=== PATIENT | female | born 2000 | race Hispanic/Latino ===

== ENCOUNTER 2020-12-18 15:42 | Outpatient (CLI) | payer BC, SELFPAY ==
--- NOTE | ~2020-12-18 | US_ITS ---
EXAMINATION: US OB follow up DATE: 12/18/2020 16:27 INDICATION: Routine care during third trimester . TECHNIQUE: Real-time ultrasound of the pelvis was performed. The interpreting radiologist was not pre sent for the study. COMPARISON: None. FINDINGS: There is a single living fetus in vertex presentation. The placenta is fundal. heart rate is 1 30 beats per minute (bpm). The amniotic fluid index is 9.6 cm, which is normal (5th%-95%: 9.6-7.3 cm at 23.9 weeks estimated gestational age). The following biometric data were obtained: BPD: 8.8 cm -> 35 weeks 2 days Head circumference: 31.3 cm -> 35 weeks 0 days Abdominal circumference: 32.2 cm -> 36 weeks 1 days Femur length: 6.5 cm -> 33 weeks 4 days These measurements are concordant. Head circumference to abdominal circumference ratio: 0.97 (normal range 0.93-1.11). Estimated weight: 2640 g (+/-) 396 g or 5 lbs. 13 oz. (+/-) 14 oz. IMPRESSION: 1. Single living fetus in vertex presentation with heart rate of 130 bpm. 2. Normal amniotic fluid index of 9.6 cm. 3. Estimated weight is 8th percentile by Hadlock criteria when 01/02/2021 is used as the estimat ed date of delivery (TERRI). Please correlate with clinical information or earlier ultrasounds for most accurate TERRI. Reviewed, dictated and finalized at location A. IMPRESSION: 1. Single living fetus in vertex presentation with heart rate of 130 bpm. 2. Normal amniotic fluid index of 9.6 cm. 3. Estimated weight is 8th percentile by Hadlock criteria when 01/02/2021 is used as the estimated date of delivery (TERRI). Please correlate with clinical information or earlier ultrasounds for most accurate TERRI.
== END 2020-12-18 15:43 | disposition home or self-care (01) ==
LOC: ANHIMG 15:50
PROVIDERS: Visit Provider Physician Assistant
DX: Z34.91 Encounter for supervision of normal pregnancy, unspecified, first trimester (principal); Z3A.01 Less than 8 weeks gestation of pregnancy
CPT/HCPCS: 76816

== ENCOUNTER 2020-12-25 11:30 | Outpatient (RCR) | payer BC, SELFPAY ==
--- NOTE | ~2020-12-25 | US_ITS ---
EXAMINATION: US OB follow up w BPP EXAM DATE: 12/25/2020 13:11 INDICATION: IUGR/BPP, NORBERT, EFW, growth, position. 3rd trimester. TECHNIQUE: Pelvic obstetrical transabdominal sonogram was performed by a technologist. There are mu ltiple grayscale and Doppler images available for interpretation. Comparison is made to prior examina tion from 12/18/2020. FINDINGS: There is a single fetus identified in vertex presentation with a heart rate of 126 beats pe r minute. The placenta is located in the anterior position. There is no sonographic evidence of retr oplacental hemorrhage identified. The amniotic fluid index is 11.7 centimeters, which is normal. BIOPHYSICAL PROFILE (performed by the technologist) breathing (30 sec sustained breathing in 30 minutes): 2 out of 2 movement (3 gross body movements in 30 minutes): 2 out of 2 tone (one episode of vesjjaa-mzddnncxa-skhxfnn limb movement): 2 out of 2 Amniotic fluid pocket (2 cm): 2 out of 2 Total score: 8 out of 8 BIOMETRIC DATA: Biparietal diameter (BPD): 8.5 cm --------------> 34 weeks 1 day. Head circumference (HC): 32.4 cm ---------------> 36 weeks 5 days. Abdominal circumference (AC): 32.9 cm ---------> 36 weeks 5 days. Femur length (FL): 6.9 cm ------------------------> 35 weeks 4 days. These measurements are concordant. HC/AC ratio is 0.99 (The 5th -- 95th percentile range is 0.93-1.08. Estimated weight is 2864 g +/- 430 g. This is the 10.5 percentile when the currently reported clinical gestation age 38 weeks 6 days, clinical estimated date of delivery (TRERI-OPE) 01/02/21 is used . estimated gestational age based on measurements from this exam is 35 weeks 6 days, with an es timated date of delivery (TERRI-AUA) 01/23. IMPRESSION: 1. Single fetus with heart rate of 126 bpm. 2. Normal biophysical profile score of 8 out of 8. 3. Compared to last week interval increase in estimated weight from 8th percentile to 10.5th p ercentile. 4. Normal NORBERT 11.7 cm. Reviewed, dictated and finalized at location A. 3. Normal NORBERT 11.7 cm. IMPRESSION: 1. Single fetus with heart rate of 126 bpm. 2. Normal biophysical profile score of 8 out of 8. 3. Compared to last week interval increase in estimated weight from 8th percentile to 10.5th percentile. 4. Normal NORBERT 11.7 cm.
[2020-12-25 13:30] VITALS: BP 118/71; PULSE 85
== END 2021-03-25 23:59 | disposition home or self-care (01) ==
LOC: ANHOBOP 11:30
PROVIDERS: Visit Provider Obstetrics & Gynecology
DX: O36.5930 Maternal care for other known or suspected poor fetal growth, third trimester, not applicable or unspecified (principal); Z3A.37 37 weeks gestation of pregnancy
CPT/HCPCS: 59025; 76816; 76819

== ENCOUNTER 2021-01-03 12:32 | Inpatient (IN) | payer BC, SELFPAY ==
--- NOTE | 2021-01-02 23:13 | PM.IMHP ---
H&P: HPI History of Present Illness Date/Time: 01/02/21 23:13 20yo with GBS, MTHFR, BV, anemia, late care, and growth restriction estimated weight 10th percentile presents for induction of labor at 39w5d with favorable cervix for induction has just recently finished metronidazole for BV care began 09/04/2020 and she has had a total 8 visits. Her is monitored with noninvasive test NIPT normal negative anomaly screen ultrasound negative anomaly screen with serial scans revealing growth restriction. GBS positive 1 hour glucose normal MTHFR positive on treatment program. For with favorable cervix in near her EDC she is being brought in for labor induction with Pitocin. I explained her condition procedure and risk involved she understands risk of shoulder dystocia and hemorrhage as well as risk of section and the surgical risks including bleeding infection injury to bladder bowel baby pelvic vessels DVT pneumonia wound infection endometritis UTI the risk of anesthesia she understands all this accepts and agrees to proceed She desires natural childbirth she will be having a girl she desires [facility] and she will use Nexplanon for control Chief Complaint: term , growth restriction, elective induction of labor Review of Systems Review of Systems: All systems reviewed & are unremarkable except as noted in HPI and below Constitutional: Constitutional: Reports no additional constitutional complaints Eyes: Eyes: Reports no additional eye complaints ENT: Reports system reviewed and no additional complaints, except as documented Cardiovascular: Cardiovascular: Reports no additional cardiovascular complaints Respiratory: Respiratory: Reports no additional respiratory complaints Gastrointestinal: Gastrointestinal: Reports no additional gastrointestinal complaints Genitourinary: Genitourinary: Reports no additional female genitourinary complaints Musculoskeletal: Musculoskeletal: Reports no additional musculoskeletal complaints Integumentary/Breasts: Skin/Breast: Reports system reviewed and no additional complaints, except as docu Neurologic: Reports system reviewed and no additional complaints, except as documented Psychiatric: Psychiatric: Reports no additional psychiatric complaints Endocrine: Endocrine: Reports no additional endocrine complaints Hematologic/Lymphatic: Hematologic/Lymphatic: Reports no additional hematologic/lymphatic complaints Allergic/Immunologic: Allergic/Immunologic: Reports no additional allergic/immunologic complaints [facility] Past Medical History Medical History Anemia affecting Bacterial vaginosis growth restriction GBS (group B Streptococcus carrier), +RV culture, currently Heterozygous MTHFR mutation C677T Term Family History Family History (Updated 01/02/21 @ 23:26 by Mert Nguyễn MD) Grandparent Diabetes mellitus Social History Social History (Updated 01/02/21 @ 23:27 by Mert Nguyễn MD) Alcohol intake: never Substance use: never Living arrangements: with family Occupation/Education: unemployed Sexual Orientation (if Verbalized by the Patient): Straight or Heterosexual Spiritual care concerns: No Agree to blood products: Yes Exam Const: General: cooperative, healthy appearing, comfortable, no acute distress, well developed, alert, awake and Physically active Nutritional Appearance: average body habitus Orientation/consciousness: patient oriented x3 Limitations: no limitations HENMT: Head: normal to inspection Eyes: General: appearance normal, both eyes and all related structures Neck: Neck: normal visual inspection and full ROM Chest: Chest palpation & inspection: normal inspection of the chest Resp: Effort & Inspection: normal res
--- NOTE | 2021-01-02 23:22 | WPDOBADMIT ---
Obstetrics - Admit Note Admission Note: record reviewed. No pertinent additions to the history and/or any subsequent changes in the physical findings that are not consistent with the expected course of the were found. Additions to the history and/or subsequent changes in the physical findings follow. None. 20yo with GBS, MTHFR, BV, anemia, late care, and growth restriction estimated weight 10th percentile presents for induction of labor at 39w5d with favorable cervix for induction has just recently finished metronidazole for BV care began 09/04/2020 and she has had a total 8 visits. Her is monitored with noninvasive test NIPT normal negative anomaly screen ultrasound negative anomaly screen with serial scans revealing growth restriction. GBS positive 1 hour glucose normal MTHFR positive on treatment program. For with favorable cervix in near her EDC she is being brought in for labor induction with Pitocin. I explained her condition procedure and risk involved she understands risk of shoulder dystocia and hemorrhage as well as risk of section and the surgical risks including bleeding infection injury to bladder bowel baby pelvic vessels DVT pneumonia wound infection endometritis UTI the risk of anesthesia she understands all this accepts and agrees to proceed She desires natural childbirth she will be having a girl she desires [facility] and she will use Nexplanon for control
[2021-01-03] VITALS (114 sets, daily range): BP systolic 97–143; BP diastolic 55–104; PULSE 52–133; TEMP 36.3–36.9; O2SAT 94–100; BMI 29.7
--- NOTE | 2021-01-03 03:26 | P.HPUP_ITS ---
History and Physical Update Update Date/Time: 01/02/21 23:22 History and Physical has been reviewed, including an updated exam of the patient. There are NO changes in the patient's condition. Risks, benefits, and alternatives have been discussed and questions answered. Patient agrees to proceed with procedure. 20yo with GBS, MTHFR, BV, anemia, late care, and growth restriction estimated weight 10th percentile presents for induction of labor at 39w5d with favorable cervix for induction has just recently finished metronidazole for BV care began 09/04/2020 and she has had a total 8 visits. Her is monitored with noninvasive test NIPT normal negative anomaly screen ultrasound negative anomaly screen with serial scans revealing growth restriction. GBS positive 1 hour glucose normal MTHFR positive on treatment program. For with favorable cervix in near her EDC she is being brought in for labor induction with Pitocin. I explained her condition procedure and risk involved she understands risk of shoulder dystocia and hemorrhage as well as risk of section and the surgical risks including bleeding infection injury to bladder bowel baby pelvic vessels DVT pneumonia wound infection endometritis UTI the risk of anesthesia she understands all this accepts and agrees to proceed She desires natural childbirth she will be having a girl she desires [facility] and she will use Nexplanon for control
--- NOTE | 2021-01-03 13:14 | PC.NURSE ---
This patient, Sofia Hussein, was admitted to Labor/Delivery/Recovery 106 on 01/03/21 at 12:32. Plans for labor, pain management and were discussed with patient. Patient/family oriented to hospital policies and general routines including ID bracelet, bed and alarms, visiting hours, pain management, procedures, bathroom and other care routines, personal items, smoking policy, room service/diet and guest tray routines, security routines, and visiting hours. Patient/Family are encouraged to report perceived risks to care and to ask questions if they do not understand what they are told or what they should do. See OBIX for further documentation.
--- NOTE | 2021-01-03 14:00 | PC.NURSE ---
Pt is Macedonian speaking. Does not speak or understand [place]. Stratus on during entire admission and will continue to use.
[2021-01-03 14:19] LABS: Basophils Percent Auto 0.4 % (0.2-1.2); Eosinophils Absolute Auto 0.1 K/mm3 (0-0.3); Eosinophils Percent Auto 0.8 % (0-4.4); Hematocrit 26.6 % (37.0-47.0); Hemoglobin 8.1 g/dL (12.0-15.0); Immature Granulocyte Absolute 0.03 K/mm3 (0.00-0.031); Immature Granulocyte Percent A 0.4 % (0-0.5); Lymphocytes Absolute Auto 2.06 K/mm3 (0.9-3.2); Lymphocytes Percent Auto 27.4 % (18.3-44.2); Mean Corpuscular HGB Conc 30.5 g/dl (32-36); Mean Corpuscular Hemoglobin 24.9 pg (26-34); Mean Corpuscular Volume 81.8 fl (80-100); Mean Platelet Volume 10.9 fl (7.4-10.4); Monocytes Absolute Auto 0.5 K/mm3 (0.1-0.6); Monocytes Percent Auto 6.5 % (2.6-8.5); Neutrophils Absolute Auto 4.8 K/mm3 (1.3-6.7); Neutrophils Percent Auto 64.5 % (45.5-73.1); Nucleated Red Blood Cells Perc 0.5 % (0.0-0.2); Platelet Count Result 284 k/mm3 (150-375); Red Blood Count 3.25 M/mm3 (4.2-5.4); Red Cell Distribution Width 13.8 % (11.5-14.5); White Blood Count 7.5 K/mm3 (4.5-10.0)
[2021-01-03] MEDS: LACTATED RINGERS 1,000 ML 125 ML IV CONT ×3 (14:24→19:35)
[2021-01-03] MEDS: OXYTOCIN 30 UNITS/NS 500 ML 30 UNITS/500 ML BAG IV CONT (14:25)
[2021-01-03] MEDS: AMPICILLIN 2 GM/NS 100 ML 2 GM/100 ML BAG IVPB (14:25)
[2021-01-03] MEDS: AMPICILLIN 1 GM/NS 50 ML 1 GM/50 ML BAG IVPB ×2 (17:15→23:06)
--- NOTE | 2021-01-03 17:40 | WPDANESEPP ---
Anes - Eval Pre Procedure Procedure: Labor epidural Date/Time: 01/03/21 17:40 Surgeon: lea Preop Diagnosis: Abd pain with contractions Pre Op Diagnosis: Induction of Labor Patient Data Age: 20 Gender: F Height: 1.52 m Weight: 69 kg Last Vital Signs Pulse 66 01/03/21 17:30 BP 113/77 01/03/21 17:30 Allergies Allergy/AdvReac Type Severity Reaction Status Date / Time No Known Allergies Allergy Verified 01/03/21 15:31 Home Medications Medication Instructions Recorded Confirmed Type [id number] 1 tablet PO DAILY 01/03/21 01/03/21 History [] Laboratory Tests 01/03/21 01/03/21 01/03/21 13:53 13:53 13:53 WBC 7.5 K/mm3 K/mm3 (4.5-10.0) RBC 3.25 M/mm3 L M/mm3 (4.2-5.4) Hgb 8.1 g/dL L g/dL (12.0-15.0) Hct 26.6 % L % (37.0-47.0) MCV 81.8 fl fl (80-100) MCH 24.9 pg L pg (26-34) MCHC 30.5 g/dl L g/dl (32-36) RDW 13.8 % % (11.5-14.5) Plt Count 284 k/mm3 k/mm3 (150-375) MPV 10.9 fl H fl (7.4-10.4) Immature Gran % (Auto) 0.4 % % (0-0.5) Neut % (Auto) 64.5 % % (45.5-73.1) Lymph % (Auto) 27.4 % % (18.3-44.2) [place] % (Auto) 6.5 % % (2.6-8.5) Eos % (Auto) 0.8 % % (0-4.4) Baso % (Auto) 0.4 % % (0.2-1.2) Lymph # (Auto) 2.06 K/mm3 K/mm3 (0.9-3.2) [place] # (Auto) 0.5 K/mm3 K/mm3 (0.1-0.6) Eos # (Auto) 0.1 K/mm3 K/mm3 (0-0.3) Baso # (Auto) 0.0 K/mm3 K/mm3 (0.0-0.1) Abs Immat Gran (auto) 0.03 K/mm3 K/mm3 (0.00-0.031) Absolute Neuts (auto) 4.8 K/mm3 K/mm3 (1.3-6.7) Absolute Nucleated RBC 0.0 K/mm3 K/mm3 (0.0-0.012) Nucleated RBC % 0.5 % H % (0.0-0.2) RPR Pending Blood Type O Positive Antibody Screen Negative Patient hx anesthesia problems: none Family hx anesthesia problems: none Results Review: All pre-operative results and documents have been reviewed as part of the pre-operative evaluation. [facility] Past Medical History Medical History Anemia affecting Bacterial vaginosis growth restriction GBS (group B Streptococcus carrier), +RV culture, currently Heterozygous MTHFR mutation C677T Term Family History Family History Grandparent Diabetes mellitus Social History Social History Smoking status: Never smoker Alcohol intake: never Substance use: never Living arrangements: with family Occupation/Education: unemployed Sexual Orientation (if Verbalized by the Patient): Straight or Heterosexual Spiritual care concerns: No Agree to blood products: Yes Exam Day of Procedure 01/03/21 17:40 Patient weight: overweight Airway: Mallampati scale class II Neurological: alert and oriented
[2021-01-04] VITALS (61 sets, daily range): BP systolic 108–146; BP diastolic 55–86; PULSE 54–86; RESP 14–15; TEMP 36.2–36.6; O2SAT 97–100
--- NOTE | 2021-01-04 01:35 | PM.OBPNLAB ---
Pain Control Date/time seen: 01/03/21 19:35 Pain control: tolerating well and epidural Pelvic Exam Dilation (cm): 3 Effacement (%): 90 station: -3 Amniotic membrane status: Intact Contractions Monitor mode: External Contraction frequency: 5 Contraction duration: 45 Contraction pattern: Regular Contraction phase: Contraction Contraction intensity: Strong/Firm Status status: Category l Assessment and Plan Pitocin rate (mU/min): 6 Assessment: active labor and induction ongoing Plan: continuous present management
--- NOTE | 2021-01-04 01:37 | PM.OBPNLAB ---
Pain Control Date/time seen: 01/03/21 23:37 Pain control: tolerating well and epidural Pelvic Exam Dilation (cm): 6 Effacement (%): 100 station: -3 Amniotic membrane status: Intact Contractions Monitor mode: External Contraction frequency: 5 Contraction duration: 45 Contraction pattern: Regular Contraction phase: Contraction Contraction intensity: Strong/Firm Status status: Category l Assessment and Plan Pitocin rate (mU/min): 6 Assessment: active labor Plan: continuous present management
--- NOTE | 2021-01-04 01:38 | PM.OBPNLAB ---
Pain Control Date/time seen: 01/04/21 00:10 Pain control: tolerating well and epidural Pelvic Exam Dilation (cm): 9 Effacement (%): 100 station: 0 Amniotic membrane status: Ruptured Contractions Monitor mode: External Contraction frequency: 2 Contraction duration: 40 Contraction pattern: Regular Contraction phase: Contraction Contraction intensity: Strong/Firm Status status: Category l Assessment and Plan Pitocin rate (mU/min): 6 Assessment: active labor Plan: continuous present management
--- NOTE | 2021-01-04 01:40 | PM.OBPRVD ---
OB - Delivery Note Procedure Delivery date: 01/04/21 Procedure: Normal spontaneous vertex vaginal delivery a viable female infant and placenta Repair of first-degree perineal laceration events: Labor Induction Induction method: per pitocin protocol Delivery monitor: external FHT and external uterine Route of delivery: Episiotomy description: None Laceration Description: Perineal - 1st Degree Delivery repair: vicryl Specimen: Yes ( placenta, cord blood, cord blood gases) Quantitative Blood Loss (ml): 250 Anesthesia type: Epidural Disposition: floor Complications: none Narrative: complete cervical dilation at 0050 on 01/04/2021 +3 station. Short 2nd stage followed by a normal spontaneous vertex vaginal delivery a viable female anterior shoulder delivered without difficulty infant delivered cord clamped and cut infant handed to the nursery nurse in attendance scores 8 9 weight length pending cord gases cord blood obtained placenta delivered intact three-vessel cord the uterus contracted well with Pitocin given intravenously first-degree perineal laceration repaired with 2 0 Vicryl suture running fashion small superficial right vulvar laceration repaired with interrupted 0 Vicryl suture. Cervix vagina checked blood clots removed from the intrauterine cavity perineum repair was intact there was no fistula sphincters normal sponge needle and instrument counts correct Note baby being given up for adoption legal papers in chart. I was not aware of this until delivery. Patient had not shared that information with me, my staff or my office during her care. Translation line utilize for labor delivery and recovery. Baby taken to the nursery in stable condition mom and birthing [address] in stable condition Baby Date of : 01/04/21 Time of : 01:20 Weeks of gestation at delivery: 39 Infant gender: Female Weight (pounds): 6 Weight (ounces): 0 presentation: vertex position: Left Occiput Anterior Placenta delivery description: Spontaneous and Normal Configuration cord vessel description: 3 Vessels score one minute: 8 score five minutes: 9 Narrative: transition in nursery stable condition weight 6 lb 0 oz length 19 in
--- NOTE | 2021-01-04 01:49 | PM.OBDSVD ---
DS: Admitting Diagnosis Discharge Date 01/04/21 Admitting Diagnosis Assessment and plan (1) Term : Code(s): Z34.90 - Encounter for supervision of normal , unspecified, unspecified trimester Status: Acute (2) growth restriction: Status: Acute (3) Elective induction of labor planned: Status: Acute (4) GBS (group B Streptococcus carrier), +RV culture, currently : Code(s): O99.820 - Streptococcus B carrier state complicating Status: Acute (5) Heterozygous MTHFR mutation C677T: Code(s): Z15.89 - Genetic susceptibility to other disease Status: Acute (6) Anemia affecting : Code(s): O99.019 - Anemia complicating , unspecified trimester Status: Acute DS: Discharge Diagnosis Discharge Diagnosis (1) growth restriction: Status: Acute (2) Elective induction of labor planned: Status: Acute (3) Heterozygous MTHFR mutation C677T: Code(s): Z15.89 - Genetic susceptibility to other disease Status: Acute (4) GBS (group B Streptococcus carrier), +RV culture, currently : Code(s): O99.820 - Streptococcus B carrier state complicating Status: Acute (5) Anemia affecting : Code(s): O99.019 - Anemia complicating , unspecified trimester Status: Acute (6) with plans to adopt out baby: Code(s): Z34.90 - Encounter for supervision of normal , unspecified, unspecified trimester Status: Acute (7) Term delivered: Code(s): O80 - Encounter for full-term uncomplicated delivery Status: Acute OB - DS: Summary Hospital Course Time spent discussing smoking cessation with patient: 3 to 10 minutes OB Procedures : NST and Ultrasound OB Procedures Intrapartum: Spontaneous Vag Delivery and GBS prophylaxis OB Procedures: : None Peripartum Data Delivery Method: Natural Vaginal Laceration Description: Perineal - 1st Degree Episiotomy description: None Procedures: normal spontaneous vertex vaginal delivery a viable female and placenta Repair of first-degree perineal laceration complications: none Squire 1: Gender: Female Disposition of : adopted out Status at Discharge Cognitive/behavioral status at discharge: normal Functional status at discharge: independent ambulation Overall status at discharge: patient is back to baseline Time Spent with Patient Time attestation: Total time spent providing and/or coordinating discharge services: Time spent: Less than 30 minutes Exam Const: General: cooperative, healthy appearing, comfortable, no acute distress, well developed, alert, awake and Physically active Nutritional Appearance: average body habitus Orientation/consciousness: patient oriented x3 Limitations: no limitations HENMT: Head: normal to inspection Eyes: General: appearance normal, both eyes and all related structures Neck: Neck: normal visual inspection and full ROM Chest: Chest palpation & inspection: normal inspection of the chest Resp: Effort & Inspection: normal respiratory effort Auscultation: clear to auscultation bilaterally Cardio: Rate: regular rate Rhythm: regular rhythm GI: Inspection: normal to inspection GI Palp: Yes Soft to palpation Percussion: Yes normal to percussion Auscultation: normal bowel sounds : External Female Exam: normal external appearance Bimanual exam- vagina & uterus: non-tender Back/Spine/Pelvis: Back: no CVA tenderness Skin: General skin exam: normal color Neuro: General: oriented to time, patient oriented x3, gait normal, tone normal, moves all extremities and Normal light touch and pain sensation Extrem: General: normal to inspection and full ROM Psych: Appearance: grossly normal Mental Status: mental status grossly normal Speech and movement: Normal speech and movement pre
[2021-01-04] MEDS: IBUPROFEN 600 MG TABLET PO ×2 (02:17→08:29)
[2021-01-04] MEDS: OXYTOCIN 30 UNITS/NS 500 ML 30 UNITS/500 ML BAG 125 UNITS IV CONT (02:17)
[2021-01-04] MEDS: POLYSACCHARIDE IRON COMPLEX 150 MG CAPSULE PO (08:29)
[2021-01-04] MEDS: MULTIVIT/MIN/PREN/FOL AC/IRON TABLET 1 TAB PO (08:29)
--- NOTE | 2021-01-04 09:12 | PC.NURSE ---
0905--Care Coordination called for report; will be in contact with insurance attorney and then to unit to talk with patient.
--- NOTE | 2021-01-04 09:47 | PC.NURSE ---
0947-Care Coordination at bedside to sign paperwork. Stratus open and translating.
--- NOTE | 2021-01-04 09:55 | PM.OBPNVD ---
OB - PN: Subj Subjective Date/time seen: 01/04/21 09:55 Patient comments: no complaints and pain well controlled baby status: doing well OB - PN: Obj Data Labs CBC & Chem 7: 01/03/21 13:53 Labs: Laboratory Results - last 24 hr 01/03/21 01/03/21 13:53 13:53 WBC 7.5 RBC 3.25 L Hgb 8.1 L Hct 26.6 L MCV 81.8 MCH 24.9 L MCHC 30.5 L RDW 13.8 Plt Count 284 MPV 10.9 H Immature Gran % (Auto) 0.4 Neut % (Auto) 64.5 Lymph % (Auto) 27.4 [place] % (Auto) 6.5 Eos % (Auto) 0.8 Baso % (Auto) 0.4 Lymph # (Auto) 2.06 [place] # (Auto) 0.5 Eos # (Auto) 0.1 Baso # (Auto) 0.0 Abs Immat Gran (auto) 0.03 Absolute Neuts (auto) 4.8 Absolute Nucleated RBC 0.0 Nucleated RBC % 0.5 H Blood Type O Positive Antibody Screen Negative OB - PN A/P Assessment and Plan (1) Term delivered: Code(s): O80 - Encounter for full-term uncomplicated delivery Status: Acute (2) with plans to adopt out baby: Code(s): Z34.90 - Encounter for supervision of normal , unspecified, unspecified trimester Status: Acute (3) GBS (group B Streptococcus carrier), +RV culture, currently : Code(s): O99.820 - Streptococcus B carrier state complicating Status: Acute (4) Heterozygous MTHFR mutation C677T: Code(s): Z15.89 - Genetic susceptibility to other disease Status: Acute (5) growth restriction: Status: Acute Plan day: 1 Plan: routine care, discharge home and follow up 6 weeks Time Spent With Patient Time: Total time spent is greater than 50% in coordination of care (as documented) at patient's floor/unit and/or counseling patient: Time with patient: less than 15 minutes Review of Systems Review of Systems: All systems reviewed & are unremarkable except as noted in HPI and below Exam Const: General: cooperative and healthy appearing Nutritional Appearance: average body habitus and well nourished Orientation/consciousness: patient oriented x3 Limitations: no limitations HENMT: Head: normal to inspection Eyes: General: appearance normal, both eyes and all related structures Neck: Neck: normal visual inspection Chest: Chest palpation & inspection: normal inspection of the chest Resp: Effort & Inspection: normal respiratory effort Cardio: Rate: regular rate Rhythm: regular rhythm GI: Inspection: normal to inspection : External Female Exam: normal external appearance Back/Spine/Pelvis: Back: no CVA tenderness Skin: General skin exam: normal color Neuro: General: patient oriented x3, gait normal, tone normal and moves all extremities Extrem: General: normal to inspection Psych: Appearance: grossly normal Mental Status: mental status grossly normal Speech and movement: Normal speech and movement present Affect: normal affect Attitude: cooperative Thought process: Normal thought process present Thought content: Yes Normal thought content present Insight: Good insight present (Psych) Judgement: Good judgement present (Psych)
[2021-01-04] MEDS: ESCITALOPRAM OXALATE 10 MG TABLET PO (10:25)
--- NOTE | 2021-01-04 12:53 | PCCCNOTE ---
Care Coordination Note: Met with pt. and RN at bedside today. Used [employer] Device with ground crew linesman Simon oseguera. Pt. does report plan is for a closed adoption for baby Keenan. Reports the closed adoption is her decision and denies that she has been coerced into making that decision by someone else. Pt. reports that her collections attorney is Tami Muro who can be contacted at [phone]. Spoke with Tami who confirms plan is closed adoption and has provided guardianship paperwork to the hospital. Adoption Agency is [facility] located at [facility] [address]. Pt. did sign guardianship paperwork and the Authorization to Release . Requests to be discharged today. Denies any other case management needs.
[2021-01-06 06:58] LABS: Rapid Plasma Reagin Non-Reactive (NonReactive)
[2021-01-07 10:20] VITALS: BP 102/62; PULSE 97; RESP 20; TEMP 36.8; O2SAT 100
== END 2021-01-04 15:45 | disposition home or self-care (01) | DRG 560 ==
LOC: ANHLDR 01-04 01:56 → ANHOBPP 01-04 04:36
PROVIDERS: Admitting Provider Obstetrics & Gynecology; Visit Provider Obstetrics & Gynecology
DX: O62.3 Precipitate labor (principal); O36.5930 Maternal care for other known or suspected poor fetal growth, third trimester, not applicable or unspecified; O99.824 Streptococcus B carrier state complicating childbirth; O70.0 First degree perineal laceration during delivery; O99.284 Endocrine, nutritional and metabolic diseases complicating childbirth; E72.12 Methylenetetrahydrofolate reductase deficiency; O99.02 Anemia complicating childbirth; D64.9 Anemia, unspecified; O23.593 Infection of other part of genital tract in pregnancy, third trimester; B96.89 Other specified bacterial agents as the cause of diseases classified elsewhere; Z3A.39 39 weeks gestation of pregnancy; Z37.0 Single live birth
CPT/HCPCS: 36415; 85025; 86592; 86850; 86900; 86901; 88307; A9270; J0290; J2590; J2795; J7120

== ENCOUNTER 2023-04-17 13:55 | Emergency (ER) | payer SELFPAY ==
--- NOTE | ~2023-04-17 | CT_ITS ---
EXAMINATION: CT IAC/mastoids BI w con DATE: 04/17/2023 15:19 INDICATION: TECHNIQUE: Computed tomography (CT) of the temporal bones was performed without intravenous contrast. The dose-length product was 598.26 mGy-cm. COMPARISON: None FINDINGS: RIGHT TEMPORAL BONE: Irregular rim-enhancing fluid collection measuring 2.1 x 2.7 cm in the right preauricular soft tissue s, with adjacent and right upper anterior and posterior cervical chain lymphadenopathy, and surroundi ng inflammatory changes in the subcutaneous fat extending into the right parotid and right cheek. Normal internal auditory canal, cochlea, vestibule, semicircular canals, oval window, vestibular aque duct, carotid canal, jugular bulb, facial nerve course, ossicles, tympanic membrane, and mastoid air cells. No osseous erosion or periosteal change. LEFT TEMPORAL BONE: Normal internal auditory canal, cochlea, vestibule, semicircular canals, oval window, vestibular aque duct, carotid canal, jugular bulb, facial nerve course, ossicles, tympanic membrane, and mastoid air cells. No osseous erosion or periosteal change. IMPRESSION: 2.7 cm right preauricular soft tissue abscess, with inflammatory changes extending into the right harjit ek and right parotid gland. Preauricular and right upper anterior and posterior cervical chain lympha denopathy. No osseous involvement. Reviewed, dictated and finalized at location K. [facility] IMPRESSION: 2.7 cm right preauricular soft tissue abscess, with inflammatory changes extend ing into the right cheek and right parotid gland. Preauricular and right upper anterior and posterior cervical chain lymphadenopathy. No osseous involvement.
[2023-04-17 14:05] VITALS: BP 126/79; PULSE 79; RESP 20; TEMP 36.7; O2SAT 100
--- NOTE | 2023-04-17 14:27 | ED.GENADULT ---
HPI - General Adult General Chief complaint: Ear <Art Hidalgo PA-C - Last Filed: 04/17/23 18:14> Stated complaint: earache <Art Hidalgo PA-C - Last Filed: 04/17/23 18:14> Time Seen by Provider: 04/17/23 14:09 <Art Hidalgo PA-C - Last Filed: 04/17/23 18:14> Source: patient <EDILMA Vigil Last Filed: 04/17/23 18:14> Mode of arrival: ambulatory <Art Hidalgo PA-C - Last Filed: 04/17/23 18:14> Limitations: no limitations <Art Hidalgo PA-C - Last Filed: 04/17/23 18:14> History of Present Illness HPI narrative: This is a 22-year-old female who presents to the ED with chief complaint of right ear pain for the past 8 days. Reports the pain is gotten worse and worse each day. Reports she has been having fevers, chills, nausea and vomiting. Denies any recent injury to the area or ear piercings. Denies bug bite or other lesions. When asked about sore throat she says it hurts in the upper jaw area. Denies any further sites of pain or swelling. No medical history. <Art Hidalgo PA-C Last Filed: 04/17/23 18:14> Related Data Allergies/adverse reactions: Allergies Allergy/AdvReac Type Severity Reaction Status Date / Time No Known Allergies Allergy Verified 04/17/23 14:08 <Art Hidalgo PA-C - Last Filed: 04/17/23 18:14> Review of Systems Review of Systems: All systems as dictated in HPI <EDILMA Vigil Last Filed: 04/17/23 18:14> [facility] Past Medical History Medical History: Medical History Anemia affecting Bacterial vaginosis growth restriction GBS (group B Streptococcus carrier), +RV culture, currently Heterozygous MTHFR mutation C677T Term <EDILMA Vigil Last Filed: 04/17/23 18:14> Family History Family History: Family History Grandparent Diabetes mellitus <Art Hidalgo PA-C - Last Filed: 04/17/23 18:14> Social History Social History: Social History Smoking status: Never smoker Alcohol intake: never Substance use: never Living arrangements: with family Occupation/Education: unemployed Sexual Orientation (if Verbalized by the Patient): Straight or Heterosexual Spiritual care concerns: No Agree to blood products: Yes <Art Hidalgo PA-C - Last Filed: 04/17/23 18:14> Exam Narrative: GENERAL: Well-appearing, well-nourished, and in no acute distress. HEAD: Normocephalic, atraumatic. EYES: PERRLA and EOMI. ENT: Moderate swelling to the right anterior periauricular area. Significant tenderness. Fluctuance present without drainage. bilateral ear canals and TMs are normal. The bilateral mastoids are without redness or tenderness. Nares clear, no rhinorrhea or epistaxis. Mucous membranes moist. Oropharynx without tonsillar hypertrophy exudate or other lesions. NECK: Supple. No adenopathy or masses. CHEST: No respiratory distress. Clear to auscultation. No wheezes rales or rhonchi HEART: Regular rate and rhythm. No murmur heard. Normal peripheral pulses. ABDOMEN: Soft, nontender, nondistended, normal active bowel sounds. MSK: Normal range of motion. No edema. SKIN: Warm, dry, no rash. NEURO: Alert and oriented x3. No focal deficits. PSYCH: Normal mood and affect. <Art Hidalgo PA-C - Last Filed: 04/17/23 18:14> Course [employer]/PA Physician Supervision This visit was performed by both a physician and an APC. I performed all aspects of the MDM as documented. <Jerrica Daniels MD - Last Filed: 04/17/23 18:04> Vital Signs Vital signs: Vital Signs Temperature 98.1 F 04/17/23 14:05 Pulse Rate 79 04/17/23 14:05 Respiratory Rate 20 04/17/23 14:05 Blood Pressure 126/79 04/17/23 14:05 Pulse Oximetry 100 04/17/23 14:05 Oxygen Delivery Room Air 04/17/23 14:05
[2023-04-17] MEDS: SODIUM CHLORIDE 0.9% IV 1,000 ML 999 ML IV CONT (14:41)
[2023-04-17] MEDS: MORPHINE SULFATE (*CRX) 4 MG/ML INJ IV PUSH (14:41)
[2023-04-17 14:42] LABS: Basophils Absolute Auto 0.1 K/mm3 (0.0-0.1); Basophils Percent Auto 0.5 % (0.2-1.2); Eosinophils Absolute Auto 0.1 K/mm3 (0-0.3); Eosinophils Percent Auto 0.6 % (0-4.4); Hematocrit 34.5 % (37.0-47.0); Hemoglobin 10.2 g/dL (12.0-15.0); Immature Granulocyte Absolute 0.03 K/mm3 (0.00-0.031); Immature Granulocyte Percent A 0.2 % (0-0.5); Lymphocytes Absolute Auto 3.33 K/mm3 (0.9-3.2); Lymphocytes Percent Auto 25.9 % (18.3-44.2); Mean Corpuscular HGB Conc 29.6 g/dl (32-36); Mean Corpuscular Hemoglobin 24.6 pg (26-34); Mean Corpuscular Volume 83.1 fl (80-100); Mean Platelet Volume 9.3 fl (7.4-10.4); Monocytes Absolute Auto 0.8 K/mm3 (0.1-0.6); Monocytes Percent Auto 5.8 % (2.6-8.5); Neutrophils Absolute Auto 8.6 K/mm3 (1.3-6.7); Platelet Count Result 571 k/mm3 (150-375); Red Blood Count 4.15 M/mm3 (4.2-5.4); White Blood Count 12.9 K/mm3 (4.5-10.0)
[2023-04-17 14:55] LABS: Alanine Aminotransferase 21 U/L (6-35); Albumin Level 4.1 g/dL (3.5-5.1); Alkaline Phosphatase 83 U/L (38-126); Anion Gap 10 mmol/L (8-16); Aspartate Amino Transferase 20 U/L (14-36); Bilirubin,Total 0.3 mg/dL (0.2-1.3); Blood Urea Nitrogen 12 mg/dL (7-17); Calcium 8.8 mg/dL (8.4-10.2); Carbon Dioxide 26 mmol/L (22-30); Chloride 104 mmol/L (98-107); Estimated CRCL calculation 141 ml/min; Estimated Glomerular Filt Rate > 60; Glucose 99 mg/dL (65-110); Potassium 3.8 mmol/L (3.4-5.0); Sodium 140 mmol/L (137-145)
[2023-04-17 14:57] LABS: CRP 1.4 mg/dL (<1.0)
[2023-04-17 15:11] LABS: Schistocytes None Seen (NORMAL)
[2023-04-17 15:12] LABS: Anisocytosis 1+ (NORMAL); Hypochromasia 1+ (NORMAL); Platelet Estimate Increased (Adequate)
[2023-04-17] MEDS: KETOROLAC 15 MG/ML VIAL (*BKC) IV PUSH (16:38)
[2023-04-17] MEDS: LIDO 1%/EPINEPHRINE 1:100,000 20 ML VIAL 10 ML INFILTRATE (16:38)
[2023-04-17] MEDS: ceFAZolin 1 GM/NS 50 ML 1 GM/50 ML BAG IVPB (16:49)
[2023-04-17 17:19] VITALS: BP 107/71; PULSE 100; RESP 19; O2SAT 100
== END 2023-04-17 17:21 | disposition home or self-care (01) ==
PROVIDERS: Emergency Provider Physician Assistant
DX: H60.01 Abscess of right external ear (principal)
CPT/HCPCS: 36415; 69000; 70481; 80053; 85025; 86140; 96361; 96374; 96375; 99284; J0690; J1885; J2270; J7030; Q9967